=== PATIENT | male | born 1990 | race Hispanic/Latino ===

== ENCOUNTER 2017-12-19 23:29 | Emergency (ER) | payer OTHER ==
[~2017-12-19] VITALS: Ht 167.6 cm; Wt 97.5 kg
--- NOTE | 2017-12-20 00:20 | ED GENERAL ADULT ---
History of Present Illness General Chief Complaint: General Adult Stated Complaint: "I FEEL LIKE SOMETHING IS STUCK IN MY THROAT" Source: patient Exam Limitations: no limitations Vital Signs & Intake/Output Vital Signs & Intake/Output Vital Signs Date Time Temp Pulse Resp B/P B/P Pulse O2 O2 Flow FiO2 Mean Ox Delivery Rate 12/19 2346 98.1 64 18 148/83 97 Room Air ED Intake and Output 12/20 0000 12/19 1200 Intake Total Output Total Balance Patient 215 lb Weight Weight Reported by Patient Measurement Method Allergies Coded Allergies: No Known Allergies (12/19/17) Triage Note: PT FROM HOME C/O PILL STUCK IN THROAT PER PT. PT STATES THAT 30 MINS PRIOR TO ARRIVAL HE TOOK A NAPROXEN AND FEELS IT BE TO STUCK IN HIS THROAT. PT DRANK A WHOLE BOTTLE OF WATER AND GLASS OF MILK. PT IN TRIAGE CONTINUALLY FORCEABLY COUGHING. PT HAS A PATENT AIRWAY, NO DISTRESS NOTED, PTS 02 ON RA 97. PT NOTED TO BE PLAYING ON CELL PHONE. VSS. Triage Nurses Notes Reviewed? yes Onset: Abrupt Duration: hour(s): (1), constant, continues in ED Timing: single episode today Injury Environment: home Severity: mild, moderate Severity Numbers: 6 No Modifying Factors: none HPI: 27-year-old male no medical history presents for evaluation of possible foreign body in his throat. Patient states she was taking naproxen tablet when he felt like it got stuck in his throat. This is about 45 minutes prior to presentation. He states he has a feeling of a foreign body in his throat and is making him cough. He denies any difficulty breathing difficulty swallowing. This never happened before. He has been able tolerate water since. He feels like it is gradually getting better since it first started. (Tani Bretrand) Past History Travel History Traveled to [place] past 21 day No Medical History Any Pertinent Medical History? see below for history Neurological: NONE EENT: NONE Cardiovascular: NONE Respiratory: NONE Gastrointestinal: NONE Hepatic: NONE Renal: NONE Musculoskeletal: NONE Psychiatric: NONE Endocrine: NONE Surgical History Surgical History: non-contributory Psychosocial History What is your primary language Danish Tobacco Use: Never used Family History Hx Contributory? No (Tani Bertrand) Review of Systems Review of Systems Constitutional: Reports: no symptoms. EENTM: Reports: see HPI, throat pain. Respiratory: Reports: no symptoms. Cardiovascular: Reports: no symptoms. GI: Reports: no symptoms. Genitourinary: Reports: no symptoms. Musculoskeletal: Reports: no symptoms. Skin: Reports: no symptoms. Neurological/Psychological: Reports: no symptoms. Hematologic/Endocrine: Reports: no symptoms. Immunologic/Allergic: Reports: no symptoms. All Other Systems: Reviewed and Negative (Tani Bertrand) Physical Exam Physical Exam General Appearance: well developed/nourished, no apparent distress, alert, awake Head: atraumatic, normal appearance Eyes: Bilateral: normal appearance, EOMI. Ears, Nose, Throat: normal pharynx, normal ENT inspection, hearing grossly normal Neck: normal inspection, supple, full range of motion Respiratory: normal breath sounds, chest non-tender, no respiratory distress, lungs clear, no stridor Cardiovascular: regular rate/rhythm, normal peripheral pulses Peripheral Pulses: 2+ radial (R), 2+ radial (L) Gastrointestinal: soft, non-tender Back: normal inspection, normal range of motion Extremities: normal inspection, normal range of motion, no edema Neurologic/Psych: no motor/sensory deficits, awake, alert, oriented x 3, normal gait Skin: intact, normal color, warm/dry Lymphatic: no anterior cervical duane Core Measures ACS in differential dx? No CVA/TIA Diagnosis: No Sepsis Present: No Sepsis Focused Exam Completed? No (Tani Bertrand) Progress Differential Diagnoses I considered the following diagnoses in my evaluation of the patient: [esophegal fb, aspiration, anxiety, pharyngitis, gerd] Plan of Care: Orders Procedure Date/time Status XRY-SOFT TISSUE NECK 12/20 0003 Active Patient seen and evaluated. He is here with a choking sensation taking the naproxen Tylenol 45 minutes ago. Patient states he feels like the back of his throat is irritated and he feels like the pelvis still there. He's never had this before. He has been tolerating fluids. No drooling no stridor no difficulty breathing. Was given a GI cocktail and a soft tissue neck x-ray was obtained. Patient reported complete resolution of symptoms after GI cocktail. Neck x-ray did not show any obvious foreign bodies or swelling. Patient is feeling better. Advised him to continue fluids. Follow-up with ENT. Discussed return precautions patient agrees Diagnostic Imaging: Viewed by Me: Radiology Read. Discussed w/RAD: Radiology Read. Radiology Impression: PATIENT: BEATRIS PEGUERO PRESENT AGE: 27 PATIENT ACCOUNT NO: [id number] : 90 LOCATION: [facility] ORDERING PHYSICIAN: Tani BAEZA SERVICE DATE: 12/20/17 EXAM TYPE: RAD - XRY-SOFT TISSUE NECK EXAMINATION: XR SOFT TISSUE NECK CLINICAL INDICATION: Choking sensation, question foreign body COMPARISON: None TECHNIQUE: 2 views of the soft tissue neck were obtained. FINDINGS: No prevertebral soft tissue swelling. The pharyngeal airway appears patent on the lateral view. Laryngeal cartilage calcifications are present which limits the detection for possible small foreign body. There is reversal of the normal cervical lordosis with mild degenerative change in the cervical spine. IMPRESSION: 1. Laryngeal cartilage calcifications are present which limits detection for small foreign bodies. 2. Reversal of the normal cervical lordosis which may be due to positioning or muscle spasm. DICTATED BY: Ramón Holland MD DATE/TIME DICTATED:12/20/1745 RAILROAD YARD WORKER:CAROLYN DATE/TIME TRANSCRIBED:12/20/1745 CONFIDENTIAL, DO NOT COPY WITHOUT APPROPRIATE AUTHORIZATION. <Electronically signed in Other Vendor System> SIGNED BY: Ramón Holland MD 12/20/1752 Initial ED EKG: none (Tani Bertrand) Departure Departure Disposition: HOME OR SELF CARE Condition: Stable Clinical Impression Primary Impression: Choking episode Referrals: Edy Chong MD Patient Has No Primary Care Dr (PCP/Family) Additional Instructions: Follow-up with ear nose and throat doctor as needed. Tylenol or ibuprofen for pain. Drink plenty of fluids. Return with any concerns. Departure Forms: Customer Survey General Discharge Information (Tani Bertrand) PA/GUIDE CHANGER Co-Sign Statement Statement: ED Attending supervision documentation- x[] I have reviewed the ED Record and agree with the PA's/GUIDE CHANGER's documentation. (Jacob QUIROGA,Krzysztof Phan) Critical Care Note Critical Care Note Critical Care Time: non-applicable (Tani Bertrand)
--- NOTE | 2017-12-20 00:53 | RADIOLOGY REPORT ---
EXAMINATION: XR SOFT TISSUE NECK CLINICAL INDICATION: Choking sensation, question foreign body COMPARISON: None TECHNIQUE: 2 views of the soft tissue neck were obtained. FINDINGS: No prevertebral soft tissue swelling. The pharyngeal airway appears patent on the lateral view. Laryngeal cartilage calcifications are present which limits the detection for possible small foreign body. There is reversal of the normal cervical lordosis with mild degenerative change in the cervical spine. IMPRESSION: 1. Laryngeal cartilage calcifications are present which limits detection for small foreign bodies. 2. Reversal of the normal cervical lordosis which may be due to positioning or muscle spasm.
[2017-12-20 01:07] VITALS: BP 142/67
== END 2017-12-20 01:08 ==
LOC: ERH 23:29
DX: R09.89 Other specified symptoms and signs involving the circulatory and respiratory systems (principal)
CPT/HCPCS: 70360